=== PATIENT | female | born 1995 | race Caucasian/White ===

== ENCOUNTER 2016-06-17 06:02 | Emergency (ER) | payer OTHER ==
--- NOTE | 2016-06-19 22:01 | ED DISCHARGE INSTRUCTIONS ---
Patient: WAI THIBODEAUX General Instructions [facility] VisitID: [id number] [place] [address] 21y, F Registration Date/Time: 06/17/2016 Acute norovirus gastroenteritis with volume depletion and dehydration. Six months gestation. INSTRUCTIONS No strenuous activity. Rest. Take clear liquids only (frequent sips) for the next 24 hours until better. Advance diet as tolerated. Warnings: Further evaluation is necessary. GENERAL WARNINGS: Return or contact your physician immediately if your condition worsens or changes unexpectedly, if not improving as expected, or if other problems arise. Prescription Medications: Zofran (orally disintegrating tablets) 4 mg: take 1 orally every 4 hours as needed for nausea. Dispense ten (10). No refill. Follow-up: Follow up with your doctor Sunday in two days if not better. Understanding of the discharge instructions verbalized by patient. ADDITIONAL INFORMATION Viral Gastroenteritis (6Yr-Adult) Gastroenteritis is another name for thestomach flu.It is most often caused by a virus that affects the stomach and intestinal tract. Symptoms include stomach cramping and fever, vomiting and/or diarrhea, and can last from 2 to 7 days. The danger from repeated vomiting or diarrhea is dehydration. This is the loss of too much water and minerals from the body. When this occurs, body fluids must be replaced. Antibiotics are not effective for this illness, but simple home treatment will be helpful. Home Care If symptoms are severe, rest at home for the next 24 hours. Avoid tobacco, caffeine, and alcohol use, which can worsen symptoms. Acetaminophen (Tylenol) or ibuprofen (Motrin, Advil) may be usedfor fever or pain unless another medication was prescribed. NOTE: If you have chronic liver or kidney disease or ever had a stomach ulcer or GI bleeding, talk with your doctor before using these medicines. Aspirin should never be used in anyone under 18 years of age who is ill with a fever. It may cause severe liver damage. If medicines for diarrhea or vomiting were prescribed, be sure they are takenonly as directed. If vomiting, drink small amounts of clear fluids (such as water, sports drinks, clear sodas) at frequent intervals to prevent dehydration. Start with 1 to 2 tablespoons every 10 minutes. Once vomiting stops, follow these guidelines: During The First 12 To 24 Hours follow the diet below: Beverages: Sport drinks like Gatorade, soft drinks without caffeine; douglas mary, mineral water (plain or flavored), decaffeinated tea and coffee. Soups: Clear broth, consomm and bouillon Desserts: Plain gelatin (Jell-O), Popsicles and fruit juice bars. During The Next 24 Hours you may add the following to the above: Hot cereal, plain toast, bread, rolls, crackers Plain noodles, rice, mashed potatoes, chicken noodle or rice soup Unsweetened canned fruit (avoid pineapple), bananas Limit fat intake to less than 15 grams per day by avoiding margarine, butter, oils, mayonnaise, sauces, gravies, fried foods, peanut butter, meat, poultry, and fish. Limit fiber; avoid raw or cooked vegetables, fresh fruits (except bananas), and bran cereals. Limit caffeine and chocolate. Do not use spices or seasonings except salt. During The Next 24 Hours The patient can gradually resume a normal diet as symptoms lessen. Preventing Spread Hand washing with soap and water is the best way to prevent the spread of viruses. Caregivers should wash their hands before andafter touching the sick person. The sick person, as well as everyone in the family,should wash their hands after using the toilet and before meals. Clean the toilet after each use. People with diarrhea should not prepare food for others. If you are preparing your own foods, wash your hands before and after. Follow Up with your doctor as advised. Call your doctor if you are not improving over the next 2 to 3 days. If a stool (diarrhea) sample was taken, you may call in 2 days (or as directed) for the results. Get Prompt Medical Attention if any of the following occur: Increasing abdominal pain Continued vomiting (unable to keep liquids down) Frequent diarrhea (more than 5 times a day) Blood in vomit or stool (black or red color) Dark urine, reduced urine output, or extreme thirst Weakness, dizziness, fainting Drowsiness, confusion, stiff neck, or seizure Fever of 100.4F (38C) oral or higher, not better with fever medication New rash Clear Liquid Diet Clear liquids are any liquid that you can see through as well as those that are very easy to digest. This is used while the body is recovering from irritation or infection of the stomach or intestinal tract. It may also be used before special procedures or surgery. This diet is to be used no more than three days. You may include the following items. Adults Adults should drink a total of 23 quarts of liquid per day. It may be easier to drink small frequent servings rather than a few large ones. Liquids can include: Fruit juices.Strained orange juice or lemonade (no pulp), apple, grape and cranberry juice, clear fruit drinks, sports drinks Beverages.Sport drinks, sodas, mineral water (plain or flavored), tea, black coffee, liquid gelatin (add twice the recommended amount of water) Soups.Clear broth, consomm, bouillon Desserts.Plain gelatin, popsicles, fruit juice bars Children Over 2 years old The following liquids are acceptable for children over age 2: Fruit juices.Strained orange juice or lemonade (no pulp), apple, grape and cranberry juice, clear fruit drinks Beverages. Sports drinks, sodas, mineral water (plain or flavored), tea, liquid gelatin (add twice the recommended amount of water) Soups. Clear broth, consomm, bouillon Desserts. Plain gelatin, popsicles, fruit juice bars Children under 2 years old Oral rehydration fluids such are available at drug stores and most grocery stores without a prescription. Ondansetron Oral disintegrating tablet What is this medicine? ONDANSETRON (on OWEN se latonya) is used to treat nausea and vomiting caused by chemotherapy. It is also used to prevent or treat nausea and vomiting after surgery. How should I use this medicine? These tablets are made to dissolve in the mouth. Do not try to push the tablet through the foil backing. With dry hands, peel away the foil backing and gently remove the tablet. Place the tablet in the mouth and allow it to dissolve, then swallow. While you may take these tablets with water, it is not necessary to do so. Talk to your commodity director regarding the use of this medicine in children. Special care may be needed. What side effects may I notice from receiving this medicine? Side effects that you should report to your doctor or health critical care unit nurse as soon as possible: allergic reactions like skin rash, itching or hives, swelling of the face, lips, or tongue breathing problems dizziness fast or irregular heartbeat feeling faint or lightheaded, falls fever and chills swelling of the hands and feet tightness in the chest Side effects that usually do not require medical attention (report to your doctor or health critical care unit nurse if they continue or are bothersome): constipation or diarrhea headache What may interact with this medicine? Do not take this medicine with any of the following medications: -apomorphine -cisapride -dofetilide -dronedarone -pimozide -thioridazine -ziprasidone This medicine may also interact with the following medications: -carbamazepine -phenytoin -rifampicin -tramadol -other medicines that prolong the QT interval (cause an abnormal heart rhythm) What if I miss a dose? If you miss a dose, take it as soon as you can. If it is almost time for your next dose, take only that dose. Do not take double or extra doses. Where should I keep my medicine? Keep out of the reach of children. Store between 2 and 30 degrees C (36 and 86 degrees F). Throw away any unused medicine after the expiration date. What should I tell my health care provider before I take this medicine? They need to know if you have any of these conditions: heart disease history of irregular heartbeat liver disease low levels of magnesium or potassium in the blood an unusual or allergic reaction to ondansetron, granisetron, other medicines, foods, dyes, or preservatives or trying to get breast-feeding What should I watch for while using this medicine? Check with your doctor or health critical care unit nurse as soon as you can if you have any sign of an allergic reaction. You have been given the following additional information: Gastroenteritis, Viral (6Y-Adult) Diet, Clear Liquid Ondansetron Oral disintegrating tablet No strenuous activity. Rest. (Electronically signed by Elijah Vela MD 06/19/2016 22:01)
--- NOTE | 2016-06-19 22:01 | ED NURSING NOTES ---
Clinical Report - Nurses [facility] [address] [place] [address] 06/17/2016 6:04 Patient: WAI THIBODEAUX TRIAGE Triage time 06:12 Jun 17 2016. Acuity: LEVEL 3. Chief Complaint: NAUSEA and VOMITING. SEPSIS SCREEN: Sepsis Screen: negative. Negative (no infection suspected/documented). VICKEY COMA SCORE: [place] Coma Scale: 15- eyes open spontaneously (4); best verbal response- oriented x 4 (5); best motor response- obeys commands (6). --06:17 Clarisa Hare 06:12 06/17/16. BP: 106/67. HR: 75. RR: 20. O2 saturation: 100%. Temp: 97.9 F (oral). Pain level now: 0/10. --06:17 Clarisa Hare. Weight: 99.7 kg stated. Height/Length: 67 inches Per Patient. BMI: 34.5. --06:15 Clarisa Hare. Medications None. --06:14 Clarisa Hare. Medication/allergy information source: the patient. --06:17 Clarisa Hare. Allergies No Known Drug Allergy. --06:14 Clarisa Hare. History Arrived by private vehicle. Historian: patient. Accompanied by family. Primary physician ([facility]). ( Patient reports she was in [place] on vacation and came back on . She states that when she got home she began vomiting and having nausea. She states that she has been unable to keep much food or fluids down. She reports being six months ). PAST MEDICAL HX: Immunizations: status is unknown. Last normal menstrual period- 6 months ago. SOCIAL HX: Never smoker. No alcohol use or drug use. No infectious disease exposure. ABUSE ASSESSMENT: No report of abuse. FALL RISK ASSESSMENT: Fall risk assessment completed. No fall risk identified. NUTRITIONAL RISK ASSESSMENT: The nutritional risk assessment revealed no deficiencies. FUNCTIONAL ASSESSMENT: Functional assessment: no impairments noted. LEARNING NEEDS ASSESSMENT: The learning needs assessment revealed no barriers. SKIN INTEGRITY ASSESSMENT: Skin integrity risk assessment completed. No skin integrity risk identified. --06:17 Clarisa Hare. PROBLEMS: no known problems. ADDITIONAL SURGERIES: no known surgeries. Interventions ID band on patient. To treatment room. --06:17 Clarisa Hare. PHYSICAL ASSESSMENT Ambulatory to room. Patient gowned. GENERAL / NEURO / PSYCH: Alert. Oriented X 4. She appears uncomfortable. HEENT: Mucous membranes are pink. RESPIRATORY: Respirations not labored. GI / : Abdomen soft and nontender. SKIN: Skin is pale. Skin is warm and dry. --06:17 Clarisa Hare CVS: Normal sinus rhythm noted. --06:17 Clarisa Hare. NURSING PROGRESS NOTES Pulse oximeter and NIBP monitor placed on patient. Patient gowned. Reassurance given to the patient. Two patient identifiers checked. Call light placed in reach. Side rails up x 1. Bed placed in lowest position. Brakes of bed on. Patient ready for evaluation- chart flagged. --06:17 Clarisa Hare 06:18 06/17/16. Patient ID band checked for patient name and birthdate: patient confirmed. Instructions provided to collect clean catch urine and patient verbalized understanding. Clean catch urine collected with return of yellow-colored clear urine; sample sent to lab for urinalysis. Specimen labeled in the presence of the patient. --06:18 Clarisa Hare ( Patient informed of plan of care to treat nausea and attempt PO challenge. Patient and agreeable with this plan). --06:32 Clarisa Hare 06:35 06/17/2016 Zofran ODT (Ondansetron) PO Oral Disintegrating Tablets 4 mg given. Allergies verified and confirmed 5 rights. --06:35 Clarisa Hare Care transferred and report given (Pippa Almanza). --07:13 Clarisa Hare 07:42 06/17/2016 Site #1 started via IV antecubital space with an 18g angiocath using 1% intra-dermal lidocaine, with aseptic technique and good blood return; one attempt. Saline lock flushed with 10 mL saline. --07:42 Pippa Donahue, R.N. 07:43 06/17/2016 Started bag #1 500 mL IV Fluids IV NS (Saline); bolus of 1000 mL wide open via site #1 via IV pump. Allergies verified and confirmed 5 rights. IV patency established. IV site checked: no pain, redness, or swelling. IV flushed thoroughly pre- and post-medication administration. --07:43 Pippa Donahue R.N. 07:00. ( Assumed care of patient resting quietly). --07:44 Pippa Donahue R.N. 07:20. ( T'S 140). --08:07 Pippa Donahue R.N. DISPOSITION / DISCHARGE Departure time: 08:12. Condition at departure: improved. No learning barriers present. Discharge instructions provided and reviewed with the patient. Written instructions provided in Solomon Islander. The patient was discharged home and accompanied by spouse. She left the Emergency Department ambulatory and via private vehicle. Spouse driving. --08:12 Pippa Donahue R.N. 08:08 06/17/16. BP: 96/56. HR: 66. RR: 20. O2 saturation: 99%. Pain level now 0/10. --08:12 Pippa Donahue R.N. Locked/Released at 06/17/2016 8:13 by Pippa Donahue R.N.
--- NOTE | 2016-06-19 22:01 | ED NURSING NOTES ---
Clinical Report - Nurses [facility] [address] [place] [address] 06/17/2016 6:04 Patient: WAI THIBODEAUX TRIAGE Triage time 06:12 Jun 17 2016. Acuity: LEVEL 3. Chief Complaint: NAUSEA and VOMITING. SEPSIS SCREEN: Sepsis Screen: negative. Negative (no infection suspected/documented). VICKEY COMA SCORE: [place] Coma Scale: 15- eyes open spontaneously (4); best verbal response- oriented x 4 (5); best motor response- obeys commands (6). --06:17 Clarisa Hare 06:12 06/17/16. BP: 106/67. HR: 75. RR: 20. O2 saturation: 100%. Temp: 97.9 F (oral). Pain level now: 0/10. --06:17 Clarisa Hare. Weight: 99.7 kg stated. Height/Length: 67 inches Per Patient. BMI: 34.5. --06:15 Clarisa Hare. Medications None. --06:14 Clarisa Hare. Medication/allergy information source: the patient. --06:17 Clarisa Hare. Allergies No Known Drug Allergy. --06:14 Clarisa Hare. History Arrived by private vehicle. Historian: patient. Accompanied by family. Primary physician ([facility] slim). ( Patient reports she was in [place] on vacation and came back on . She states that when she got home she began vomiting and having nausea. She states that she has been unable to keep much food or fluids down. She reports being six months ). PAST MEDICAL HX: Immunizations: status is unknown. Last normal menstrual period- 6 months ago. SOCIAL HX: Never smoker. No alcohol use or drug use. No infectious disease exposure. ABUSE ASSESSMENT: No report of abuse. FALL RISK ASSESSMENT: Fall risk assessment completed. No fall risk identified. NUTRITIONAL RISK ASSESSMENT: The nutritional risk assessment revealed no deficiencies. FUNCTIONAL ASSESSMENT: Functional assessment: no impairments noted. LEARNING NEEDS ASSESSMENT: The learning needs assessment revealed no barriers. SKIN INTEGRITY ASSESSMENT: Skin integrity risk assessment completed. No skin integrity risk identified. --06:17 Clarisa Hare. PROBLEMS: no known problems. ADDITIONAL SURGERIES: no known surgeries. Interventions ID band on patient. To treatment room. --06:17 Clarisa Hare. PHYSICAL ASSESSMENT Ambulatory to room. Patient gowned. GENERAL / NEURO / PSYCH: Alert. Oriented X 4. She appears uncomfortable. HEENT: Mucous membranes are pink. RESPIRATORY: Respirations not labored. GI / : Abdomen soft and nontender. SKIN: Skin is pale. Skin is warm and dry. --06:17 Clarisa Hare CVS: Normal sinus rhythm noted. --06:17 Clarisa Hare. NURSING PROGRESS NOTES Pulse oximeter and NIBP monitor placed on patient. Patient gowned. Reassurance given to the patient. Two patient identifiers checked. Call light placed in reach. Side rails up x 1. Bed placed in lowest position. Brakes of bed on. Patient ready for evaluation- chart flagged. --06:17 Clarisa Hare 06:18 06/17/16. Patient ID band checked for patient name and birthdate: patient confirmed. Instructions provided to collect clean catch urine and patient verbalized understanding. Clean catch urine collected with return of yellow-colored clear urine; sample sent to lab for urinalysis. Specimen labeled in the presence of the patient. --06:18 Clarisa Hare ( Patient informed of plan of care to treat nausea and attempt PO challenge. Patient and agreeable with this plan). --06:32 Clarisa Hare 06:35 06/17/2016 Zofran ODT (Ondansetron) PO Oral Disintegrating Tablets 4 mg given. Allergies verified and confirmed 5 rights. --06:35 Clarisa Hare Care transferred and report given (Pippa Almanza). --07:13 Clarisa Hare 07:42 06/17/2016 Site #1 started via IV antecubital space with an 18g angiocath using 1% intra-dermal lidocaine, with aseptic technique and good blood return; one attempt. Saline lock flushed with 10 mL saline. --07:42 Pippa Donahue, R.N. 07:43 06/17/2016 Started bag #1 500 mL IV Fluids IV NS (Saline); bolus of 1000 mL wide open via site #1 via IV pump. Allergies verified and confirmed 5 rights. IV patency established. IV site checked: no pain, redness, or swelling. IV flushed thoroughly pre- and post-medication administration. --07:43 Pippa Donahue R.N. 07:00. ( Assumed care of patient resting quietly). --07:44 Pippa Donahue R.N. 07:20. ( T'S 140). --08:07 Pippa Donahue R.N. DISPOSITION / DISCHARGE Departure time: 08:12. Condition at departure: improved. No learning barriers present. Discharge instructions provided and reviewed with the patient. Written instructions provided in Mongolian. The patient was discharged home and accompanied by spouse. She left the Emergency Department ambulatory and via private vehicle. Spouse driving. --08:12 Pippa Donahue R.N. 08:08 06/17/16. BP: 96/56. HR: 66. RR: 20. O2 saturation: 99%. Pain level now 0/10. --08:12 Pippa Donahue R.N. Locked/Released at 06/17/2016 8:13 by Pippa Donahue R.N.
--- NOTE | 2016-06-19 22:01 | ED MED RECONCILIATION SUMMARY ---
Patient: WAI THIBODEAUX Medication Reconciliation Report [facility] VisitID: [id number] [address] [place] [address] 21y, F Registration Date/Time: 06/17/2016 Weight: 99.7 kg Height/Length: 67 in. BMI: 34.5 ALLERGIES: No Known Drug Allergy The patient's Home Medications are listed below: NONE. The source(s) of the original Home Medication information: patient The following Medications were given to the patient in the Emergency Department: Zofran ODT [PO] PO 4 mg, administered: 06/17/2016 6:35:00 AM IV NS IV Fluids bolus 1000 mL wide open, administered: 06/17/2016 7:43:00 AM The following Medications were prescribed to the patient: Zofran (orally disintegrating tablets) 4 mg: take 1 orally every 4 hours as needed for nausea. Dispense ten (10). No refill. -- Elijah Vela MD
--- NOTE | 2016-06-19 22:01 | ED CLINICAL REPORT ---
Clinical Report - Physicians/Mid Levels [facility] [address] [place] [address] 06/17/2016 6:04 Patient: WAI THIBODEAUX Time Seen: 07:29 Jun 17 2016. Arrived- By private vehicle. Historian- patient. CPT: ER phys charges level 4 (#[id number]). HISTORY OF PRESENT ILLNESS Chief Complaint: VOMITING and DIARRHEA. 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 and is still present. Recent travel- [place]. She has had nausea, vomiting and diarrhea. No black stools, bloody stools or abdominal pain. The illness is described as moderate. Similar symptoms previously: None. Recent medical care: Not recently seen/assessed. REVIEW OF SYSTEMS No fever, muscle aches, difficulty with urination, dark urine or abnormal bleeding. No dizziness, sore throat, cough, chest pain or difficulty breathing. No excessive urination, skin rash or jaundice. Currently : 6 months gestation. All systems otherwise negative, except as recorded above. PAST HISTORY Negative. Problems: no known problems. Additional Surgeries: no known surgeries. Medications: None. Allergies: No Known Drug Allergy. SOCIAL HISTORY Never smoker. No alcohol use or drug use. ADDITIONAL NOTES The nursing notes have been reviewed. PHYSICAL EXAM Vital Signs: 06/17/2016 06:12 BP: 106/67. HR: 75. RR: 20. O2 saturation: 100%. Temp: 97.9 F. Pain level now: 0/10. Appearance: Alert. Patient in mild distress. Eyes: Eyes normal inspection. ENT: Pharynx normal. Neck: Normal inspection. CVS: Normal heart rate and rhythm. Heart sounds normal. Pulses normal. Respiratory: No respiratory distress. Breath sounds normal. Abdomen: Soft. Mild tenderness in the periumbilical area. Bowel sounds normal. Back: Normal inspection. Skin: Skin warm. Normal skin color. No rash. Extremities: Extremities exhibit normal ROM. No lower extremity edema. Neuro: Oriented X 3. No motor deficit. No sensory deficit. LABS, X-RAYS, AND EKG Laboratory Tests: Urinalysis: (NESHA: 06/17/2016 06:15) ( MsgRcvd 06/17/2016 06:42) Final results Test Result Flag Units (Reference) URINE COLOR YELLOW URINE APPEARANCE SLIGHTLY HAZY URINE GLUCOSE NEGATIVE (NEGATIVE) URINE BILIRUBIN NEGATIVE (NEGATIVE) URINE KETONE NEGATIVE (NEGATIVE) URINE SPECIFIC GRAVITY 1.020 (1.010-1.030) URINE PH 7.0 (5.0-8.0) URINE PROTEIN TRACE (NEGATIVE) URINE UROBILINOGEN 1.0 EU/dL (0.2-1.0) URINE NITRITE NEGATIVE (NEGATIVE) URINE BLOOD TRACE-LYSED (NEGATIVE) URINE LEUKOCYTE ESTERASE POSITIVE (NEGATIVE) URINE RBC 0-1 rbc/hpf (0-1) URINE WBC 3-5 wbc/hpf (0-1) URINE EPITHELIAL CELLS 3-5 EPI/hpf (0-5) URINE BACTERIA TRACE (<1+) (NONE SEEN) URINE COMMENT N . PROGRESS AND PROCEDURES Course of Care: Zofran 4 mg ODT po Able to sip some. IV NS 1 liter Patient is stable. Symptoms much better. Patient/family counseled. Disposition: Discharged. Condition: stable and improved. CLINICAL IMPRESSION Acute norovirus gastroenteritis with volume depletion and dehydration. Six months gestation. INSTRUCTIONS No strenuous activity. Rest. Take clear liquids only (frequent sips) for the next 24 hours until better. Advance diet as tolerated. Warnings: Further evaluation is necessary. GENERAL WARNINGS: Return or contact your physician immediately if your condition worsens or changes unexpectedly, if not improving as expected, or if other problems arise. Prescription Medications: Zofran (orally disintegrating tablets) 4 mg: take 1 orally every 4 hours as needed for nausea. Dispense ten (10). No refill. Follow-up: Follow up with your doctor Sunday in two days if not better. Understanding of the discharge instructions verbalized by patient. (Electronically signed by Elijah Vela MD 06/19/2016 22:01)
--- NOTE | 2016-06-19 22:01 | ED ORDER SUMMARY ---
..... Patient: WAI THIBODEAUX OrderSheet [facility] VisitID: [id number] [address] [place] [address] 21y, F Registration Date/Time: 06/17/2016 ORDER SHEET Weight: 99.7 kg (stated) Allergies: No Known Drug Allergy GENERAL ORDERS: Urinalysis Urgent (06:26 06/17/2016 HSoule per protocol) (Ack 6:30 Marti) (6:48 HSoule) MEDICATION ORDERS: Zofran ODT PO 4 mg (NOW) (06:24 06/17/2016 HSoule verbal order read back to Jay DALLAS) (Ack 6:25 HSoule) (6:35 HSoule) IV FLUIDS: IV NS : initial bolus 1000 mL (1000 mL/hr), then 1000 mL/hr for X1 (NOW) (06:25 06/17/2016 HSoule verbal order read back to Jay DALLAS) (Ack 6:26 HSoule) (Cancelled: Wrong Order6:31 HSoule) IV NS : initial bolus 1000 mL (1000 mL/hr), then none - for X1 (NOW); Routine (07:29 06/17/2016 Jay DALLAS) (7:43 Jeison Linares.NZenaida) ORDER SHEET NOTES: [Electronically signed by Pippa Donahue R.N. (08:06/17/2016)] [Electronically signed by Elijah Vela MD (22:06/19/2016)] [Electronically locked/signed by Pippa Donahue R.N. (08:13 06/17/2016)]
--- NOTE | 2016-06-19 22:01 | ED CLINICAL REPORT ---
Clinical Report - Physicians/Mid Levels [facility] [address] [place] [address] 06/17/2016 6:04 Patient: WAI THIBODEAUX Time Seen: 07:29 Jun 17 2016. Arrived- By private vehicle. Historian- patient. CPT: ER phys charges level 4 (#[id number]). HISTORY OF PRESENT ILLNESS Chief Complaint: VOMITING and DIARRHEA. 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 and is still present. Recent travel- [place]. She has had nausea, vomiting and diarrhea. No black stools, bloody stools or abdominal pain. The illness is described as moderate. Similar symptoms previously: None. Recent medical care: Not recently seen/assessed. REVIEW OF SYSTEMS No fever, muscle aches, difficulty with urination, dark urine or abnormal bleeding. No dizziness, sore throat, cough, chest pain or difficulty breathing. No excessive urination, skin rash or jaundice. Currently : 6 months gestation. All systems otherwise negative, except as recorded above. PAST HISTORY Negative. Problems: no known problems. Additional Surgeries: no known surgeries. Medications: None. Allergies: No Known Drug Allergy. SOCIAL HISTORY Never smoker. No alcohol use or drug use. ADDITIONAL NOTES The nursing notes have been reviewed. PHYSICAL EXAM Vital Signs: 06/17/2016 06:12 BP: 106/67. HR: 75. RR: 20. O2 saturation: 100%. Temp: 97.9 F. Pain level now: 0/10. Appearance: Alert. Patient in mild distress. Eyes: Eyes normal inspection. ENT: Pharynx normal. Neck: Normal inspection. CVS: Normal heart rate and rhythm. Heart sounds normal. Pulses normal. Respiratory: No respiratory distress. Breath sounds normal. Abdomen: Soft. Mild tenderness in the periumbilical area. Bowel sounds normal. Back: Normal inspection. Skin: Skin warm. Normal skin color. No rash. Extremities: Extremities exhibit normal ROM. No lower extremity edema. Neuro: Oriented X 3. No motor deficit. No sensory deficit. LABS, X-RAYS, AND EKG Laboratory Tests: Urinalysis: (NESHA: 06/17/2016 06:15) ( MsgRcvd 06/17/2016 06:42) Final results Test Result Flag Units (Reference) URINE COLOR YELLOW URINE APPEARANCE SLIGHTLY HAZY URINE GLUCOSE NEGATIVE (NEGATIVE) URINE BILIRUBIN NEGATIVE (NEGATIVE) URINE KETONE NEGATIVE (NEGATIVE) URINE SPECIFIC GRAVITY 1.020 (1.010-1.030) URINE PH 7.0 (5.0-8.0) URINE PROTEIN TRACE (NEGATIVE) URINE UROBILINOGEN 1.0 EU/dL (0.2-1.0) URINE NITRITE NEGATIVE (NEGATIVE) URINE BLOOD TRACE-LYSED (NEGATIVE) URINE LEUKOCYTE ESTERASE POSITIVE (NEGATIVE) URINE RBC 0-1 rbc/hpf (0-1) URINE WBC 3-5 wbc/hpf (0-1) URINE EPITHELIAL CELLS 3-5 EPI/hpf (0-5) URINE BACTERIA TRACE (<1+) (NONE SEEN) URINE COMMENT N . PROGRESS AND PROCEDURES Course of Care: Zofran 4 mg ODT po Able to sip some. IV NS 1 liter Patient is stable. Symptoms much better. Patient/family counseled. Disposition: Discharged. Condition: stable and improved. CLINICAL IMPRESSION Acute norovirus gastroenteritis with volume depletion and dehydration. Six months gestation. INSTRUCTIONS No strenuous activity. Rest. Take clear liquids only (frequent sips) for the next 24 hours until better. Advance diet as tolerated. Warnings: Further evaluation is necessary. GENERAL WARNINGS: Return or contact your physician immediately if your condition worsens or changes unexpectedly, if not improving as expected, or if other problems arise. Prescription Medications: Zofran (orally disintegrating tablets) 4 mg: take 1 orally every 4 hours as needed for nausea. Dispense ten (10). No refill. Follow-up: Follow up with your doctor Sunday in two days if not better. Understanding of the discharge instructions verbalized by patient. (Electronically signed by Elijah Vela MD 06/19/2016 22:01)
--- NOTE | 2016-06-19 22:01 | ED MAR SUMMARY ---
..... Medication Administration Record [facility] [address] [place] [address] Patient: WAI THIOBDEAUX Visit ID: [id number] 21y, F Weight: 99.7 kg Height/Length: 67 in BMI: 34.5 ALLERGIES: No Known Drug Allergy Given 06:35 06/17/2016 Clarisa Hare, Medication Administered: ZOFRAN ODT [PO] (ONDANSETRON), Dose: 4 mg Oral Disintegrating Tablets PO. Medication Ordered: Zofran ODT PO 4 mg (NOW). Start 07:43 06/17/2016 Pippa Donahue RZenaidaNZenaida Medication Administered: IV NS (SALINE), Dose: IV Fluids, Bolus: 1000 mL wide open, Dispensed: 500 mL bag, Site: #1 . Medication Ordered: IV NS : initial bolus 1000 mL (1000 mL/hr), then none - for X1 (NOW); Routine.
--- NOTE | 2016-06-19 22:01 | ED ORDER SUMMARY ---
..... Patient: WAI THIBODEAUX OrderSheet [facility] VisitID: [id number] [address] [place] [address] 21y, F Registration Date/Time: 06/17/2016 ORDER SHEET Weight: 99.7 kg (stated) Allergies: No Known Drug Allergy GENERAL ORDERS: Urinalysis Urgent (06:26 06/17/2016 HSoule per protocol) (Ack 6:30 Marti) (6:48 HSoule) MEDICATION ORDERS: Zofran ODT PO 4 mg (NOW) (06:24 06/17/2016 HSoule verbal order read back to Jay DALLAS) (Ack 6:25 HSoule) (6:35 HSoule) IV FLUIDS: IV NS : initial bolus 1000 mL (1000 mL/hr), then 1000 mL/hr for X1 (NOW) (06:25 06/17/2016 HSoule verbal order read back to Jay DALLAS) (Ack 6:26 HSoule) (Cancelled: Wrong Order6:31 HSoule) IV NS : initial bolus 1000 mL (1000 mL/hr), then none - for X1 (NOW); Routine (07:29 06/17/2016 Jay DALLAS) (7:43 Jeison Linares.NZenaida) ORDER SHEET NOTES: [Electronically signed by Pippa Donahue R.N. (08:06/17/2016)] [Electronically signed by Elijah Vela MD (22:06/19/2016)] [Electronically locked/signed by Pippa Donahue R.N. (08:13 06/17/2016)]
--- NOTE | 2016-06-19 22:01 | ED MAR SUMMARY ---
..... Medication Administration Record [facility] [address] [place] [address] Patient: WAI THIBODEAUX Visit ID: [id number] 21y, F Weight: 99.7 kg Height/Length: 67 in BMI: 34.5 ALLERGIES: No Known Drug Allergy Given 06:35 06/17/2016 Clarisa Hare, Medication Administered: ZOFRAN ODT [PO] (ONDANSETRON), Dose: 4 mg Oral Disintegrating Tablets PO. Medication Ordered: Zofran ODT PO 4 mg (NOW). Start 07:43 06/17/2016 Pippa Donahue RZenaidaNZenaida Medication Administered: IV NS (SALINE), Dose: IV Fluids, Bolus: 1000 mL wide open, Dispensed: 500 mL bag, Site: #1 . Medication Ordered: IV NS : initial bolus 1000 mL (1000 mL/hr), then none - for X1 (NOW); Routine.
--- NOTE | 2016-06-19 22:01 | ED MED RECONCILIATION SUMMARY ---
Patient: WAI THIBODEAUX Medication Reconciliation Report [facility] VisitID: [id number] [address] [place] [address] 21y, F Registration Date/Time: 06/17/2016 Weight: 99.7 kg Height/Length: 67 in. BMI: 34.5 ALLERGIES: No Known Drug Allergy The patient's Home Medications are listed below: NONE. The source(s) of the original Home Medication information: patient The following Medications were given to the patient in the Emergency Department: Zofran ODT [PO] PO 4 mg, administered: 06/17/2016 6:35:00 AM IV NS IV Fluids bolus 1000 mL wide open, administered: 06/17/2016 7:43:00 AM The following Medications were prescribed to the patient: Zofran (orally disintegrating tablets) 4 mg: take 1 orally every 4 hours as needed for nausea. Dispense ten (10). No refill. -- Elijah Vela MD
== END 2016-06-17 08:23 | disposition home or self-care (01) ==
LOC: ED SRH 06:02
DX: O98.512 Other viral diseases complicating pregnancy, second trimester (principal); A08.11 Acute gastroenteropathy due to Norwalk agent; E86.0 Dehydration; Z3A.24 24 weeks gestation of pregnancy
CPT/HCPCS: 90004